=== PATIENT | female | born 1945 | race Caucasian/White ===

== ENCOUNTER 2025-07-11 15:16 | Emergency (ER) | payer MEDICARE, BC, SELFPAY ==
--- OUTSIDE RECORDS SUMMARY | 2008-07-10 03:00 | XMS_ITS | Continuity of Care Document ---
Author Organization [facility] Address [address] [place] [address] [place] [address] Phone Care Team Providers Care Fruit Loader Name Role Phone Fritz Carrington Unavailable Unavailable Procedures Procedure Date Eye Exam Established Pt Advance Directives Directive Yes / No Effective Date File Name No Information Encounters Encounter Description Practice Location Reason(s) For Visit Diagnoses Date Provider Providers Copied on Encounter [facility], [id number] [place] [address] [address], [place], [place], [id number], [place] tel:[phone] [address] [facility] No Information [address] [facility] [address], [place], [address], [place]. tel:[phone] Family History Family Member Type Diagnosis Age At Onset No Information Payers Payer name Insurance type Covered constitution party ID Authoriza tion(s) Medicare [facility] [id number] Social History Type Description Quantity Date Captured Comments Sex Female Smoking Status No Information Chief Complaint And Reason For Visit No Information Reason For Referral Reason For Referral No Information History Of Present Illness Encounter Date Complaint History Of Prese nt Illness No Information Functional Status Date Functional Assessmen t No Information Instructions Date Instruction Additional Infor mation No Information Assessments Type Assessment Date No Information Patient Care Teams Name Effective Dates (start - stop) Status Members No Information
--- NOTE | ~2025-07-11 | CT_ITS ---
CT abdomen pelvis w con Clinical History: ABDOMINAL PAIN . 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 Visualized heart and pericardium: Unremarkable. Liver: Intra and extrahepatic biliary ductal dilatation. Gallbladder: Unremarkable. Spleen: Unremarkable. Pancreas: A few tiny calcifications along head. Adrenal glands: Unremarkable. Kidneys: A few tiny bilateral probable cysts. Right kidney- No hydronephrosis. No renal stones. Left kidney- No hydronephrosis. No renal stones. Distal esophagus/stomach: Unremarkable. Small bowel loops: Normal caliber and wall thickness. Colon: Diverticula. Diffuse sigmoid wall thickening likely chronic diverticular disease. Appendix not seen. Nodes: No enlarged nodes. Peritoneum: No ascites. No free air. Urinary bladder: Unremarkable. Uterus: Removed. Adnexa: No masses. Bones: No acute bony abnormality. Soft tissues: Unremarkable. Aorta: No aneurysm or dissection. Atherosclerotic disease. IVC: Unremarkable. Main portal vein/SMV/splenic vein: Patent. IMPRESSION: 1. No acute findings. Reviewed, dictated and finalized at location R. N MAKER IMPRESSION: 1. No acute findings.
[2025-07-11 15:35] VITALS: BP 175/95; PULSE 79; RESP 18; TEMP 36.7; O2SAT 100
[2025-07-11 17:17] LABS: Add Urine Microscopic? NO; Appearance Urine Clear (Clear); Glucose Urine UA Negative (Negative); Leukocyte Esterase Ur Negative LEU/UL (Negative); Nitrate Urine Negative (Negative); Specific Grav Ur 1.011 (1.001-1.035)
--- NOTE | 2025-07-11 18:25 | ED_ITS ---
HPI - Female Genitourinary General Chief complaint: Urogenital-Female <Nestor Bell MD - Last Filed: 07/11/25 20:08> Stated complaint: vag burning while urinating <Nestor Bell MD - Last Filed: 07/11/25 20:08> Time Seen by Provider: 07/11/25 18:22 <Nestro Bell MD - Last Filed: 07/11/25 20:08> Source: patient and EMS <Nestor Bell MD - Last Filed: 07/11/25 20:08> Mode of arrival: EMS <Nestor Bell MD - Last Filed: 07/11/25 20:08> Limitations: no limitations <Nestor Bell MD - Last Filed: 07/11/25 20:08> History of Present Illness HPI Narrative: 80 YEARS OLD WHITE FEMALE CAME TO THE ED BY AMBULANCE FEELING LIKE HER BODY IS GOING TO . THE VERSUS SHE COMPLAIN OF ABDOMINAL PAIN FOR 2 MONTHS. ASSOCIATED WITH NAUSEA. PATIENT LIVES ALONE, DENIES ANY FEVER OR CHILLS OR VOMITING. SHE REPORTS SOME CONSTIPATION OVER THE LAST FEW DAYS. <Nestor Bell MD - Last Filed: 07/11/25 20:08> Related Data Allergies/Adverse reactions: Allergies Allergy/AdvReac Type Severity Reaction Status Date / Time PHILIP Inhibitors Allergy Unknown Verified 03/18/15 09:07 butorphanol Allergy Unknown Verified 07/12/15 16:06 ciprofloxacin Allergy Unknown Verified 07/12/15 16:06 codeine Allergy Unknown Verified 07/12/15 16:05 nalbuphine Allergy Unknown Verified 03/18/15 09:06 pentazocine Allergy Unknown Verified 03/18/15 09:05 tramadol AdvReac Unknown Unverified 05/17/14 07:53 BUTORPHANOL TARTRATE Allergy Unknown Uncoded 05/17/14 07:53 MAO INHIBITORES Allergy Unknown Uncoded 02/03/14 15:26 NALBUPHINE HCL Allergy Unknown Uncoded 05/17/14 07:53 PENTAZOCINE LACTATE Allergy Unknown Uncoded 05/17/14 07:53 NARCOTIC ANTAGONIST AdvReac Unknown PT IS ON Uncoded 05/23/11 10:25 METHADONE <Nestor Bell MD - Last Filed: 07/11/25 20:08> Review of Systems 2 Review of Systems: All systems reviewed & are unremarkable except as noted in HPI and below <Nestor Bell MD - Last Filed: 07/11/25 20:08> PMFSH Family History Family History: Family History Grandparent Family history of glaucoma Mother Family history of obesity Family history of congestive heart failure Patient's mother is Sibling Depression Patient's brother is in good health Family history of malignant neoplasm of breast in first degree relative Father Family history of alcoholism Patient's father is <Nestor Bell MD - Last Filed: 07/11/25 20:08> Social History Social History: Social History Smoking status: Former smoker Alcohol intake: never <Nestor Bell MD - Last Filed: 07/11/25 20:08> Exam 2 Narrative: GENERAL APPEARANCE: WELL-DEVELOPED, WELL-NOURISHED SKIN: NORMAL COLOR HEAD: NORMOCEPHALIC, NONTRAUMATIC EYES: CLEAR CONJUNCTIVA ENT: OROPHARYNX NORMAL, EARS NORMAL, NOSE NORMAL NECK: SUPPLE, NONTENDER CHEST AND RESPIRATORY: AIRWAY PATENT, NO RESPIRATORY DISTRESS, NO ACCESSORY MUSCLE USE HEART: REGULAR RATE/RHYTHM ABDOMEN: SOFT, RIGHT ABDOMINAL TENDERNESS, HEPATOMEGALY,, NO ORGANOMEGALY, QUIET BOWEL SOUNDS VASCULAR: NORMAL PERIPHERAL PULSES, NORMAL CAPILLARY REFILL. MUSCULOSKELETAL: NORMAL RANGE OF MOTION, NONTENDER BACK NEUROLOGIC: ALERT AND ORIENTED ?3, CRUSHING MILL OPERATOR IS NORMAL TESTED, NO GROSS MOTOR DEFICIT <Nestor Bell MD - Last Filed: 07/11/25 20:08> Course Course Emergency Course: Patient care signed over by previous provider pending CT scan and discharged home. CT scan report reviewed and shows no evidence of an acute process and chronic incidental findings that were previously noted on multiple other scans. Given lack of any acute findings and normal vital signs with unremarkable workup, patient is safe for discharge with regular primary care provider follow-up and return precautions. <Zack Perez MD - Last Filed: 07/12/25 01:06 POLICE RECORDS CLERK> Consultations Consultation #1: PATIENT CARE TURNED OVER TO DR. Cox AT SHIFT CHANGE, AWAITING LABS, IMAGING, DISPOSITION. PATIENT BEEN RESTING QUIETLY IN THE EMERGENCY ROOM WITHOUT ANY ISSUES OR PROBLEMS. <Nestor Bell MD - Last Filed: 07/11/25 20:08> Date: 07/11/25 <Nestor Bell MD - Last Filed: 07/11/25 20:08> Time: 20:05 <Nestor Bell MD - Last Filed: 07/11/25 20:08> Vital Signs Vital signs: Vital Signs Temperature 36.7 C 07/11/25 15:35 Pulse Rate 79 07/11/25 15:35 Respiratory Rate 18 07/11/25 15:35 Blood Pressure 175/95 H 07/11/25 15:35 Pulse Oximetry 100 07/11/25 15:35 Oxygen Delivery Room Air 07/11/25 15:35 Temperature 36.7 C 07/11/25 15:35 Pulse Rate 66 07/12/25 00:28 Respiratory Rate 18 07/12/25 00:28 Blood Pressure 161/88 H 07/12/25 00:28 Pulse Oximetry 98 07/12/25 00:28 Oxygen Delivery Room Air 07/11/25 15:35 <Nestor Bell MD - Last Filed: 07/11/25 20:08> Vital Signs Temperature 36.7 C 07/11/25 15:35 Pulse Rate 79 07/11/25 15:35 Respiratory Rate 18 07/11/25 15:35 Blood Pressure 175/95 H 07/11/25 15:35 Pulse Oximetry 100 07/11/25 15:35 Oxygen Delivery Room Air 07/11/25 15:35 Temperature 36.7 C 07/11/25 15:35 Pulse Rate 66 07/12/25 00:28 Respiratory Rate 18 07/12/25 00:28 Blood Pressure 161/88 H 07/12/25 00:28 Pulse Oximetry 98 07/12/25 00:28 Oxygen Delivery Room Air 07/11/25 15:35 <Zack Perez MD - Last Filed: 07/12/25 01:06 POLICE RECORDS CLERK> MDM - Female Genitourinary MDM Narrative Medical decision making narrative: PATIENT REPORT THAT HER LIVER BEEN HURTING FOR OVER 1 MONTH VITAL SIGNS SHOWING BLOOD PRESSURE 175/95 OTHERWISE WITHIN NORMAL LIMIT PHYSICAL EXAMINATION SHOWING SLIGHT TENDERNESS AT THE RIGHT ABDOMEN, NO GUARDING OR REBOUND, QUITE BOWEL SOUNDS DIFFERENTIAL DIAGNOSIS: ANXIETY, DEPRESSION, HEPATOMEGALY, CHOLECYSTITIS, APPENDICITIS, DIVERTICULITIS, COLITIS, CONSTIPATION, HEPATOMEGALY BLOOD WORKUP TODAY INCLUDES CBC, CMP, LIPASE SHOWED NO SIGNIFICANT ABNORMALITY URINALYSIS SHOWED NO SIGNIFICANT ABNORMALITY CT ABDOMEN AND PELVIS WITH IV CONTRAST SHOWED PATIENT CARE TURNED OVER TO DR. Cox AT SHIFT CHANGE, AWAITING , IMAGING, DISPOSITION. PATIENT BEEN RESTING QUIETLY IN THE EMERGENCY ROOM WITHOUT ANY ISSUES OR PROBLEMS. I BELIEVE PATIENT CAN GO HOME IF THE CT SCAN OF THE ABDOMEN AND PELVIS SHOWED NO SIGNIFICANT ABNORMALITY. <Nesotr Bell MD - Last Filed: 07/11/25 20:08> Differential Diagnosis Differential diagnosis: Likely other ( ABOVE) <Nestor Bell MD - Last Filed: 07/11/25 20:08> Medical Records Attestation: I reviewed the patient's medical records. <Nestor Bell MD - Last Filed: 07/11/25 20:08> Lab Data Attestation: I reviewed the patient's lab results. <Nestor Bell MD - Last Filed: 07/11/25 20:08> Result diagrams: 07/11/25 19:11 07/11/25 19:11 <Nestor Bell MD - Last Filed: 07/11/25 20:08> Labs: Lab Results 07/11/25 07/11/25 Range/Units 16:35 19:11 WBC 6.0 (4.5-10.0) K/mm3 RBC 4.46 (4.2-5.4) M/mm3 Hgb 12.1 (12.0-15.0) g/dL Hct 37.2 (37.0-47.0) % MCV 83.4 (80-100) fl MCH 27.1 (26-34) pg MCHC 32.5 (32-36) g/dl RDW 14.9 H (11.5-14.5) % Plt Count 258 (150-375) k/mm3 MPV 10.4 (7.4-10.4) fl Immature Gran % (Auto) 0.2 (0-0.5) % Neut % (Auto) 55.6 (45.5-73.1) % Lymph % (Auto) 28.0 (18.3-44.2) % [place] % (Auto) 11.8 H (2.6-8.5) % Eos % (Auto) 3.6 (0-4.4) % Baso % (Auto) 0.8 (0.2-1.2) % Lymph # (Auto) 1.69 (0.9-3.2) K/mm3 [place] # (Auto) 0.7 H (0.1-0.6) K/mm3 Eos # (Auto) 0.2 (0-0.3) K/mm3 Baso # (Auto) 0.1 (0.0-0.1) K/mm3 Abs Immat Gran (auto) 0.01 (0.00-0.031) K/mm3 Absolute Neuts (auto) 3.4 (1.3-6.7) K/mm3 Absolute Nucleated RBC 0.000 (0.0-0.012) K/mm3 Nucleated RBC % 0.0 (0.0-0.2) % Sodium 138 (137-145) mmol/L Potassium 4.1 (3.4-5.0) mmol/L Chloride 102 (98-107) mmol/L Carbon Dioxide 30 (22-30) mmol/L Anion Gap 6 (4-12) mmol/L BUN 20 H (7-17) mg/dL Creatinine 0.89 (0.7-1.0) mg/dL Estim Creat Clear Calc 47 ml/min Estimated GFR > 60 (59 - ) Glucose 87 (65-110) mg/dL Lactic Acid 0.8 (0.7-2.0) mmol/L Calcium 9.4 (8.4-10.2) mg/dL Total Bilirubin 0.6 (0.2-1.3) mg/dL AST 31 (14-36) U/L ALT 15 (6-35) U/L Alkaline Phosphatase 92 (38-126) U/L Total Protein 7.6 (6.3-8.2) g/dL Albumin 4.3 (3.5-5.1) g/dL Lipase 257 (23-300) U/L Urine Color Yellow (Yellow) Urine Appearance Clear (Clear) Urine pH 5.5 (5.0-9.0) Ur Specific [place] 1.011 (1.001-1.035) Urine Protein Negative (Negative) mg/dL Urine Glucose (UA) Negative (Negative) mg/dL Urine Ketones Negative (Negative) mg/dL Ur Blood (Man) Negative (Negative) Urine Nitrate Negative (Negative) Urine Bilirubin Negative (Negative) Urine Urobilinogen 0.2 (<2.0) mg/dL Leukocyte Esterase Rfl Negative (Negative) ANISHA/UL <Nestor Bell MD - Last Filed: 07/11/25 20:08> Lab Results 07/11/25 07/11/25 Range/Units 16:35 19:11 WBC 6.0 (4.5-10.0) K/mm3 RBC 4.46 (4.2-5.4) M/mm3 Hgb 12.1 (12.0-15.0) g/dL Hct 37.2 (37.0-47.0) % MCV 83.4 (80-100) fl MCH 27.1 (26-34) pg MCHC 32.5 (32-36) g/dl RDW 14.9 H (11.5-14.5) % Plt Count 258 (150-375) k/mm3 MPV 10.4 (7.4-10.4) fl Immature Gran % (Auto) 0.2 (0-0.5) % Neut % (Auto) 55.6 (45.5-73.1) % Lymph % (Auto) 28.0 (18.3-44.2) % [place] % (Auto) 11.8 H (2.6-8.5) % Eos % (Auto) 3.6 (0-4.4) % Baso % (Auto) 0.8 (0.2-1.2) % Lymph # (Auto) 1.69 (0.9-3.2) K/mm3 [place] # (Auto) 0.7 H (0.1-0.6) K/mm3 Eos # (Auto) 0.2 (0-0.3) K/mm3 Baso # (Auto) 0.1 (0.0-0.1) K/mm3 Abs Immat Gran (auto) 0.01 (0.00-0.031) K/mm3 Absolute Neuts (auto) 3.4 (1.3-6.7) K/mm3 Absolute Nucleated RBC 0.000 (0.0-0.012) K/mm3 Nucleated RBC % 0.0 (0.0-0.2) % Sodium 138 (137-145) mmol/L Potassium 4.1 (3.4-5.0) mmol/L Chloride 102 (98-107) mmol/L Carbon Dioxide 30 (22-30) mmol/L Anion Gap 6 (4-12) mmol/L BUN 20 H (7-17) mg/dL Creatinine 0.89 (0.7-1.0) mg/dL Estim Creat Clear Calc 47 ml/min Estimated GFR > 60 (59 - ) Glucose 87 (65-110) mg/dL Lactic Acid 0.8 (0.7-2.0) mmol/L Calcium 9.4 (8.4-10.2) mg/dL Total Bilirubin 0.6 (0.2-1.3) mg/dL AST 31 (14-36) U/L ALT 15 (6-35) U/L Alkaline Phosphatase 92 (38-126) U/L Total Protein 7.6 (6.3-8.2) g/dL Albumin 4.3 (3.5-5.1) g/dL Lipase 257 (23-300) U/L Urine Color Yellow (Yellow) Urine Appearance Clear (Clear) Urine pH 5.5 (5.0-9.0) Ur Specific [place] 1.011 (1.001-1.035) Urine Protein Negative (Negative) mg/dL Urine Glucose (UA) Negative (Negative) mg/dL Urine Ketones Negative (Negative) mg/dL Ur Blood (Man) Negative (Negative) Urine Nitrate Negative (Negative) Urine Bilirubin Negative (Negative) Urine Urobilinogen 0.2 (<2.0) mg/dL Leukocyte Esterase Rfl Negative (Negative) ANISHA/UL <Zack Perez MD - Last Filed: 07/12/25 01:06 POLICE RECORDS CLERK> Critical Care Time Critical Care Time Critical Care Time: No <Nestor Bell MD - Last Filed: 07/11/25 20:08> Discharge Plan Discharge Clinical Impression: Abdominal pain <Nestor Bell MD - Last Filed: 07/11/25 20:08> Patient Disposition: Home <Nestor Bell MD - Last Filed: 07/11/25 20:08> Condition: Stable <Nestor Bell MD - Last Filed: 07/11/25 20:08> Instructions: Antibiotic Form, Abdominal Pain (ED) <Nestor Bell MD - Last Filed: 07/11/25 20:08> Additional Instructions: CT scan shows no acute abnormalities. Laboratory studies are all reassuring and normal. Follow-up with your primary care provider about her symptoms. Return with any emergencies. <Nestor Bell MD - Last Filed: 07/11/25 20:08> Patient Language: Luxembourgish <Nestor Bell MD - Last Filed: 07/11/25 20:08> Follow-up/Referrals: Pramod Kirkland MD [Primary Care Provider, Hospitalist] <Nestor Bell MD - Last Filed: 07/11/25 20:08> Time of Disposition: 23:36 <Nestor Bell MD - Last Filed: 07/11/25 20:08> 23:36 <Zack Perez MD - Last Filed: 07/12/25 01:06 POLICE RECORDS CLERK>
--- OUTSIDE RECORDS SUMMARY | 2025-07-11 19:05 | XMS_ITS | Clinical Summary ---
Author Organization [facility] Address [address] [place] [address] Care Team Providers Care Clinical Mental Health Counselor Name Role Phone Pramod Kirkland MD Primary Care Provider [phone] Source Comments [facility],non-owned Affiliates and Associated Physician Practices is amultiple site organization consisting of ambulatory clinics and hospital sitesin [place], [place], [place] and [place]. This disclosure is being madepursuant to the Care Everywhere program and may not contain all information available regarding this patient. Last updated 18.[facility] Social History Tobacco Use Types Packs/Day Years Used Date Smoking Tobacco: Never Assessed Comments Unknown Sex and Gender Information Value Date Recorded Sex Assigned at Not on file Legal Sex Female 9:59 AM CDT Gender Identity Not on file Sexual Orientation Not on file Plan of Treatment Health Maintenance Due Date Last Done Comments BONE DENSITY TESTING 1945 HEPATITIS C SCREENING 06/04/1965 DTAP/TDAP/TD VACCINES (1 - Tdap) 1966 PNEUMOCOCCAL VACCINE 50+ (1 of 1 - PCV) 1997 ZOSTER VACCINE (1 of 2) 1997 Respiratory Syncytial Virus (RSV) Vaccine Pt: or over 60 yrs (1 - 1-dose 75+ series) 2022 DEPRESSION SCREENING 09/10/2024 COVID-19 VACCINE (1 - 2023-2 5 season) 2025 INFLUENZA VACCINE (#1) 2025 HEPATITIS B VACCINE Aged Out No longe r eligible based on patient's age to complete this topic HIB VACCINE Aged Out No longer eligi ble based on patient's age to complete this topic HPV VACCINE Aged Out No longer eligi ble based on patient's age to complete this topic MENINGOCOCCAL (Group B) VACC INE SHARED DECISION-MAKING Aged Out No longer eligibl e based on patient's age to complete this topic MENINGOCOCCAL GROUPS A/C/Y/W VACCINE Aged Out No longer eligible b ased on patient's age to complete this topic Insurance MEDICAID - [place] Care Teams Clinical Mental Health Counselor Relationship Specialty Start Date End Date Pramod Kirkland MD [address] [facility] [address] [place] [id number] PCP - General 07/29/20
--- OUTSIDE RECORDS SUMMARY | 2025-07-11 19:05 | XMS_ITS | Clinical Summary ---
Author Organization [facility] Address [address] [place] [address] Care Team Providers Care Leveling Machine Operator Name Role Phone Unavailable Primary Care Provider Unavailabl e Social History Tobacco Use Types Packs/Day Years Used Date Smoking Tobacco: Never Assessed Comments Unknown Sex and Gender Information Value Date Recorded Sex Assigned at Not on file Legal Sex Female 7:35 PM CDT Gender Identity Not on file Sexual Orientation Not on file Plan of Treatment Health Maintenance Due Date Last Done Comments Hepatitis C 1965 DTaP, Tdap and Td Vaccines ( 1 - Tdap) 1966 Pneumococcal Vaccine: 50+ Ye ars (1 of 1 - PCV) 1997 Zoster Vaccines (1 of 2) 1997 Dexa Scan (General) 2012 RSV Immunization or 60+ Years (1 - 1-dose 75+ series) 2022 COVID-19 Vaccine ( - 2024-2 6 season) 2025 Influenza Adult (#1) 2025 Hepatitis A Vaccines Aged Out No long er eligible based on patient's age to complete this topic Meningococcal B Vaccine Aged Out No l onger eligible based on patient's age to complete this topic Meningococcal Vaccine Aged Out No kenny cyrus eligible based on patient's age to complete this topic RSV Immunizations Under 20 Months Aged Out No longer eligible based on patient's age to complete this topic
--- OUTSIDE RECORDS SUMMARY | 2025-07-11 19:05 | XMS_ITS | Data Portability ---
Author Organization [facility] Address [address] [place] [address] Care Team Providers Care Crm Developer Name Role Phone BOJORQUEZ, JESSICA Primary Care Provider Unavailabl e Assessment No assessment recorded. Plan of Treatment Reminders Order Date Submit Date Provider Last Modified By Organization Details Last Modified Time Details Appointments None recorded. Lab urinalysis, dipstick 2015 016 In-Office Order, Internal Use Only DO Not Attach Compendium DO Not Attach Compendium, Do Not Delete/merge, [id number] 6 11:48:56 culture, urine 2015 016 [facility], [address], [address], [address], 6 16:17:31 Referral colonoscopy referral 2015 016 [email or web address] Lenard Alonzo DO, [address], [address], 6 11:14:42 Procedures None recorded. Surgeries None recorded. Imaging MAMMO, screening, bilateral 2015 016 [email or web address] Not available 6 11:14:41 Medication Orders mupirocin calcium 2 % topical cream 2015 016 [facility], [address], [place], [id number], 6 11:48:56 triamcinolo ne acetonide 0.025 % topical cream 2015 016 [facility]-, [address], [address], [place], [place], [id number], 6 11:48:56 ketoconazol e 2 % shampoo 2015 016 [facility], [address], [address], [place], [place], [id number], 6 11:48:56 Patient TargetsNo targets recorded. Patient Instructions Encounter Date Encounter Id Patient Instructions Last Modified By Organization Details Last Modified Time 04/28/2016 [id number] mammogram: about this test Not available 04/28/2016 13:03:18 When You Want to Lose Weight: Care Instructions Not available 04/28/2016 13:03:18 painful urinatio n (dysuria): care instructions Not available 04/28/2016 13:03:18 skin lesions: care instructions Not available 04/28/2016 13:03:18 Increase intake of fresh fruits, vegetables, lean protein and whole grains. Avoid packaged foods. Drink at least 8-10 glasses of water per day. Increase activity level to exercise most days of the week, build up to at least 30 minutes. We will send urine for culture and call you with results. Not available 04/28/2016 11:45:50 Sign records release to have labs sent here. 3 month f/u Not available 04/28/2016 11:44:53 Reason for Referral Colonoscopy Referral for Scr eening colonoscopy evaluate and treat Referring Physician: Jessica Bojorquez, Family Medicine, Encounter Date: 04/28/2016 Results Created Date Observation Date Name Description Value Unit Range Abnormal Flag Note LastModifiedBy Organization Detail LastModifiedTime 04/28/20 16 04/28/2016 urina lysis , dipst ick Leukocytes Negati ve Not Available In-Office Order Internal Use Only DO Not Attach Compendium DO Not Attach Compendium, Do Not Delete/merge, [id number] 04/28/2016 10:56:57 04/28/20 16 04/28/2016 urina lysis , dipst ick Nitrite negati ve Not Available In-Office Order Internal Use Only DO Not Attach Compendium DO Not Attach Compendium, Do Not Delete/merge, Counts include 234 beds at the [facility] 04/28/2016 10:56:57 04/28/2004/28/2016 urina lysis , dipst ick Urobilinogen .2 Not Available In-Of fice Order Internal Use Only DO Not Attach Compendium DO Not Attach Compendium, Do Not Delete/merge, Counts include 234 beds at the [facility] 04/28/2016 10:56:57 04/28/20 16 04/28/2016 urina lysis , dipst ick Protein Negati ve Not Available In-Office Order Internal Use Only DO Not Attach Compendium DO Not Attach Compendium, Do Not Delete/merge, Counts include 234 beds at the [facility] 04/28/2016 10:56:57 04/28/2004/28/2016 urina lysis , dipst ick pH 5.5 Not Available In-Office Order Internal Use Only DO Not Attach Compendium DO Not Attach Compendium, Do Not Delete/merge, Counts include 234 beds at the [facility] 04/28/2016 10:56:57 04/28/2004/28/2016 urina lysis , dipst ick Blood Negati ve Not Available In-Office Order Internal Use Only DO Not Attach Compendium DO Not Attach Compendium, Do Not Delete/merge, Counts include 234 beds at the [facility] 04/28/2016 10:56:57 04/28/2004/28/2016 urina lysis , dipst ick Specific [place] 1.015 Not Available In-Off ice Order Internal Use Only DO Not Attach Compendium DO Not Attach Compendium, Do Not Delete/merge, Counts include 234 beds at the [facility] 04/28/2016 10:56:57 04/28/2004/28/2016 urina lysis , dipst ick Ketone Negati ve Not Available In-Office Order Internal Use Only DO Not Attach Compendium DO Not Attach Compendium, Do Not Delete/merge, Counts include 234 beds at the [facility] 04/28/2016 10:56:57 04/28/2004/28/2016 urina lysis , dipst ick Bilirubin Negati ve Not Available In-Office Order Internal Use Only DO Not Attach Compendium DO Not Attach Compendium, Do Not Delete/merge, Counts include 234 beds at the [facility] 04/28/2016 10:56:57 04/28/20 16 04/28/2016 urina lysis , dipst ick Glucose Negati ve Not Available In-Office Order Internal Use Only DO Not Attach Compendium DO Not Attach Compendium, Do Not Delete/merge, [id number] 04/28/2016 10:56:57 04/28/20 16 04/28/2016 urina lysis , dipst ick Appearance Clear Not Available In-Offi ce Order Internal Use Only DO Not Attach Compendium DO Not Attach Compendium, Do Not Delete/merge, [id number] 04/28/2016 10:56:57 04/28/20 16 04/28/2016 urina lysis , dipst ick Color Yellow Not Available In-Office Order Internal Use Only DO Not Attach Compendium DO Not Attach Compendium, Do Not Delete/merge, [id number] 04/28/2016 10:56:57 04/28/20 16 05/01/2016 cultu re, urine urine culture, routine FINAL REPORT abnormal Not Available [facility] ([facility]) [address], [place], [address], 05/01/2016 16:17:31 04/28/20 16 05/01/2016 cultu re, urine result 1 ENTERO COCCUS FAECAL IS abnormal GREAT ER THAN 100,0 00 COLON Y FORMI NG UNITS PER ML NOTE: THIS ISOLA TE IS VANCO MYCIN -SUSC EPTIB LE. THIS INFOR MATIO N IS PROVI DED FOR EPIDE MIOLO GIC PURPO SES ONLY: VANCO MYCIN IS NOT AMONG THE ANTIB IOTIC S RECOM VASU D FOR THERA PY OF URINA RY TRACT INFEC TIONS CAUSE D BY ENTER OCOCC US. FOR ENTER OCOCC US SPECI ES, CEPHA LOSPO RINS, AMINO GLYCO SIDES (EXCE PT FOR HIGH- LEVEL RESIS TANCE SCREE MAK) , CLIND AMYCI N, AND TRIME THOPR IM- SULFA METHO XAZOL E ARE NOT EFFEC TIVE CLINI FRANCIA . FLUOR OQUIN OLONE S ARE USED PRIMA RILY FOR TREAT ING URINA RY TRACT INFEC TIONS . (CLSI , M100- S19, 2009) Not Available [facility] ([facility]) [address], [place], [address], 05/01/2016 16:17:31 04/28/20 16 05/01/2016 cultu re, urine antimicrobia l susceptibili ty COMMEN T S = SUSCE PTIBL E; I = INTER MEDIA TE; R = RESIS TANT P = POSIT ABIMAEL; N = NEGAT ABIMAEL MICS ARE EXPRE SSED IN MICRO GRAMS PER ML ANTIB IOTIC RSLT# 1 RSLT# 2 RSLT# 3 RSLT# 4 CIPRO FLOXA NARDA S LEVOF LOXAC IN S NITRO FURAN TOIN S PENIC ILLIN S TETRA CYCLI NE R VANCO MYCIN S Not Available [facility] ([facility]) [address], [place], [address], 05/01/2016 16:17:31 Result Notes None recorded. Problems Name Problem SNOMED Code Status Onset Date Resolution Date Notes Provider Name and Address Organization Details Recorded Time Dysuria 80463814 Active Jessicajuany Bojorquez STUDENT ACCOUNTS COORDINATOR, PHARMACOEPIDEMIOLOGIST-C Attn: [facility] [facility],[address] [place], [address], [facility] 6 11:48:56 Obesity 512291012 Active Jessicajuany Bojorquez STUDENT ACCOUNTS COORDINATOR, PHARMACOEPIDEMIOLOGIST-C Attn: [address] [facility],[address] [place], [address], [facility] 6 11:48:56 Skin lesion 21909540 Active Jessica Bojorquez STUDENT ACCOUNTS COORDINATOR, PHARMACOEPIDEMIOLOGIST-C Attn: [address] [facility],[address] [place], [address], [facility] 6 11:48:56 Urinary tract infectious disease 82548146 Active Jessica Bojorquez STUDENT ACCOUNTS COORDINATOR, PHARMACOEPIDEMIOLOGIST-C Attn: [facility] [facility],[address] [place], [address], [facility] 6 09:28:39 Problem Notes None recorded. Procedures Surgical History Date Name Laterality Status Provider Name and Address Organization Details Recorded Time Hysterectomy completed Ashly Lovell [facility] 04/28/2016 10:34:51 Imaging Results None recorded. Procedure Notes None recorded. Medical Equipment None Reported. Allergies Allergen ID Allergen Name Allergen Category Reaction Reaction Severity Criticality Documentation Date Start Date Code Code System Note Provider Name and Address Organization Details Recorded Time 05357 codeine medicatio n Not available Not available Not available 04/28/2016 2670 RxNorm thrus h/shonda sea Ashly ahn [facility] 6 10:30:29 11198 Cipro medicatio n Not available Not available Not available 04/28/2016 81796 3 RxNorm Ashly ahn, [facility] 6 10:30:18 Medications Name Sig Start Date Stop Date Status Note LastModified by Organization Details LastModified Time ketoconazole 2 % sham active Not Available Not Available Not Available mupirocin 2 % crea active Not Available Not Available Not Available metronidazole 250 mg tabs active Not Available Not Available Not Available clindamycin hcl 300 mg caps active Not Available Not Available Not Available levothyroxine sodium 100 mcg tabs active Not Available Not Available Not Available triamcinolone acetonide 0.1 % crea active Not Available Not Available Not Available doxepin hcl 50 mg caps Take 1 or 2 po at hs prn active Not Available Not Available No t Available nitrofurantoin monohydrate/ma crocrystals 100 mg caps active Not Available Not Available Not Available delzicol 400 mg cpdr active Not Available Not Available Not Available triamcinolone acetonide 0.025 % lotn active Not Available Not Available Not Available fluconazole 150 mg tabs active Not Available Not Available Not Available triamcinolone acetonide 0.025 % oint active Not Available Not Available Not Available phenazopyridin e hcl 200 mg tabs active Not Available Not Available Not Available sulfamethoxazo le/trimethopri m ds 800-160 mg tabs active Not Available Not Available Not Available triamcinolone acetonide 0.5 % crea active Not Available Not Available Not Available triamcinolone acetonide 0.025 % crea active Not Available Not Available Not Available clonazepam 2 mg tabs Take one tab bid active Not Available Not Available No t Available mupirocin 2 % oint active Not Available Not Available Not Available ketoconazole 2 % shampoo APPLY TO THE AFFECTED AREA(S), LATHER, LEAVE IN PLACE FOR 5 MINUTES, AND THEN RINSE OFF WITH WATER BY TOPICAL ROUTE ONCE DAILY 2015 active Not Available Not Available Not Avai lable fluconazole 150 mg tablet active Not Available Not Availabl e Not Available doxepin 75 mg capsule active Not Available Not Available Not Available clonazepam 1 mg tablet active Not Available Not Available No t Available sulfamethoxazo le 800 mg-trimethopri m 160 mg tablet active Not Available Not Available Not Available triamcinolone acetonide 0.1 % topical cream active Not Available Not Available Not Available risperidone 2 mg tablet active Not Available Not Available No t Available famotidine 20 mg tablet active Not Available Not Available No t Available triamcinolone acetonide 0.025 % topical cream APPLY A THIN LAYER TO THE AFFECTED AREA(S) BY TOPICAL ROUTE 2 TIMES PER DAY 2015 active Not Available Not Available Not Avai lable cephalexin 500 mg capsule active Not Available Not Available N ot Available nitrofurantoin macrocrystal 100 mg capsule Take 1 capsule twice a day by oral route for 5 days. 2015 active Not Available Not Available Not Avai lable divalproex ER 500 mg tablet,extende d release 24 hr active Not Available Not Available Not Available levothyroxine 150 mcg tablet active Not Available Not Availab le Not Available mupirocin calcium 2 % topical cream APPLY A SMALL AMOUNT TO THE AFFECTED AREA BY TOPICAL ROUTE 3 TIMES PER DAY FOR 10 DAYS 2015 active Not Available Not Available Not Avai lable levofloxacin 500 mg tablet active Not Available Not Availabl e Not Available clobetasol 0.05 % scalp solution active Not Available Not Available Not Available Risperdal Consta 25 mg/2 mL intramuscular susp,extended release active Not Available Not Available Not Available methadone 220mg po liquid daily active Not Available Not Available No t Available Vitals Date Recorded Body height Body weight Body mass index (BMI) Respiratory rate Oxygen saturation Oxygen saturation in Arterial blood by Pulse oximetry Heart rate Body temperature Systolic And Diastolic Provider Name and Address Organization Details Last Updated DateTime 6 165.1 cm 74742.5 37080 g 32 kg/m2 20 /min 93 % 93 % 88 /min 98.6 [degF] 102/50 mm[Hg] [facility] 6 10:40:22 Social History Question Answer Notes LastModified by Organization Details LastModified Time Tobacco Smoking Status Former Smoker Ashly Lovell [facility] 04/28/2016 10:45:39 Do You Have An Advance Directive? Yes Information not available 04/28/2016 What Is Your Level Of Caffeine Consumption? Occasional Information not available 04/28/2016 How Much Tobacco Do You Chew? None Information not available 04/28/2016 What Type Of Diet Are You Following? REGULAR Diverticulosis Watches What She Eats Information not available 04/28/2016 Which Illicit Or Recreational Drugs Have You Used? None Information not available 04/28/2016 Education 4 Year College Information not available 04/28/2016 Are There Any Guns Present In Your Home? No Information not available 04/28/2016 Hard Of Hearing Or Deaf In One Or Both Ears? 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 No Information not available 04/28/2016 Seat Belts Used Routinely Yes Information not available 04/28/2016 Smoke Alarm In Home Yes Information not available 04/28/2016 At What Age Did You Start Smoking Tobacco? 22 Information not available 04/28/2016 How Much Tobacco Do You Smoke? No Ecig Information not available 04/28/2016 General Stress Level Medium Information not available 04/28/2016 Do You Use Sunscreen Routinely? Yes Information not available 04/28/2016 Sex: Unknown Functional Status Question Answer Note LastModified by Organizat ion Details LastModified Time What is your level of alcohol consumption? 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 Occasional Information not available 04/28/2016 Mental Status None recorded. Family History Relationship Description Onset Age of this Age Resolved Age Notes LastModified by Organization Details LastModified Time Sister Depressive disorder cmilster Not available 2015 10:51:44 Sister Hypertensive disorder cmilster Not available 2015 10:51:44 Brother Depressive disorder cmilster Not available 2015 10:51:44 Notes:SISTER HAD BREAST CANC ER Medical History Condition Response Anxiety Disorder Y Diabetes Y Muscle, Joint, or Bone Problems Y Acid Reflux (GERD) Y Stroke Y Kidney or Bladder Problems Y GI Problems Y Skin Problems Y Hepatitis Y Headaches Y Gynecological History Statement/Question Response If Post Menopausal, Age at Menopause Age at First Child Obstetrics History GPAL:G 0 P 0 0 0 0 Past Encounters Encounter ID Performer Location Encounter Start Date Encounter Closed Date Diagnosis/Indication Diagnosis SNOMED-CT Code Diagnosis ICD10 Code Diagnosis IMO Codes Diagnosis Note [id number] Jessica Bojorquez APN, FNP-C [facility] [address] [place] [address] 04/28/2016 09:50:16 05/02/2016 11:14:41 Dysuria 05187631 R30.0 Obesity 156010281 E66.9 BMI 32 Screening colonoscopy 44 8980484 Z12.11 Screening mammography 24 470842 Z12.31 Adult heal th examination 858379433 Z00.00 Skin lesion 18940118 L98 .9 Health Concerns Section Related Observation LastModified by Organization Detai ls LastModified Time None Recorded Concern Status LastModified by Organization Details LastModified Time None Recorded Advance Directives Directive Y: Payers Insurance Date Sequence Insurance Name Policy Number Policy Krishna Covered Member ID Krishna Member ID Guarantor Name 10/03/2019 2 [place] WHEN MEDICARE OR MEDICARE REPLACEMENT PRIMARY) Sera Grimes [id number] 10/03/2019 1 [place] Seragwyn Grimes [id number] 10/03/2019 [place] - [facility] Sera Demi Grimes [id number] Notes Date Note Type Note Provider Name and Address Organization Details Recorded Time 04/28/20 16 text/htm l Urinary FrequencyReported by PatientHPIFor severity, patient reportsmoderate. For onset/timing, patient reportsconstant.Chronic uti's since 1992; long hx of bacterial vaginitis; has not seen food supervisor in 2 years Rash/Skin LesionReported by PatientHPIFor location, patient reportsscalp. 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
--- OUTSIDE RECORDS SUMMARY | 2025-07-11 19:05 | XMS_ITS | Clinical Summary ---
Author Organization [facility] Address [address] [place] [address] Phone Care Team Providers Care Batter Mixer Helper Name Role Phone Pramod Kirkland MD Primary Care Provider [phone] Allergies Active Allergy Reactions Criticality Noted Date Comments Ciprofloxacin Other (see Comments) Medium 06/01/2020 Codeine Other (see Comments) Medium 06/01/2020 Reaction: rash, Medications No known medications Social History Tobacco Use Types Packs/Day Years Used Date Smoking Tobacco: Every Day Smokeless Tobacco: Never Alcohol Use Standard Drinks/Week Comments Never 0 (1 standard drink = 0.6 oz pur e alcohol) AUDIT-C Answer Date Recorded Q1: How often do you have a drink containing alc ohol? Never 06/01/2020 Average Number of Drinks Not on file 020 Frequency of Binge Drinking Not on file 05/12 Comments No Sex and Gender Information Value Date Recorded Sex Assigned at Not on file Legal Sex Female 11:04 PM CDT Gender Identity Not on file Sexual Orientation Not on file Last Filed Vital Signs Vital Sign Reading Time Taken Comments Blood Pressure 120/84 06/01/2020 6:21 PM CDT Pulse 91 06/01/2020 6:21 PM CDT Temperature 36.1 C (96.9 F) 06/01/2020 10:41 AM CDT Respiratory Rate 18 06/01/2020 6:21 PM CDT Oxygen Saturation 98% 06/01/2020 6:21 PM CDT Inhaled Oxygen Concentration - - Weight 81.6 kg (180 lb) 06/01/2020 10:43 AM CDT Height 163.8 cm (5' 4.5) 06/01/2020 10:43 AM CD T Body Mass Index 30.42 06/01/2020 10:43 AM CDT Plan of Treatment Health Maintenance Due Date Last Done Comments TdaP Immunization 1945 Pneumococcal Immunization (5 0+ years) (1 of 1 - PCV) 1997 Zoster Immunization (1 of 2) 1997 Medicare Initial AWV [id number] 12/09/2020 Respiratory Syncytial Virus (RSV) Immunization (Adult) (1 - 1-dose 75+ series) 2022 Influenza Immunization (#1) 2025 SARS-COV-2 Immunization (1 - season) 2025 Hepatitis C Virus (HCV) Screening Completed 016 Hepatitis B Immunization Aged Out No longer eligible based on patient's age to complete this topic Human Papillomavirus (HPV) Immunization Aged Out No longer eligible b ased on patient's age to complete this topic Meningococcal Immunization (ACWY) Aged Out No longer eligible based on patient's age to complete this topic Rotavirus Immunization Aged Out No lo nger eligible based on patient's age to complete this topic Procedures Procedure Name Priority Date/Time Associated Diagnosis Comments HEPATITIS PANEL ACUTE (AHP) Routine 03/10/2016 8:41 AM CDT Loss of weight Diarrhea, unspecified type from Last 3 Months or Most Recently Relevant to Health Maintenance Results * (ABNORMAL) HEPATITIS PANEL ACUTE (AHP) (03/10/2016 8:41 AM CDT) HEPATITIS A IGM ANTIBODY NON DETECTED NON DETECTED 03/10/2016 9:37 PM CDT [facility] Comment: IGM Antibodies to HAV not detected. Does not exclude early acute or recovered HAV infection. HEP B CORE AB (IGM) NON DETECTED NON DETECTED 03/10/2016 9:37 PM CDT [facility] Comment: IGM anti-HBC not detected. Does not exclude the possibility of exposure to or infection with HBV. HEPATITIS B SURFACE ANTIGEN NON DETECTED NON DETECTED 03/10/2016 9:37 PM CDT [facility] hepatitis C antibody 9.33(H) <1 S/CO 03/10/2016 9:37 PM CDT [facility] Comment: Signal/Cutoff ratio < 0.79 is Nondetected Signal/Cutoff ratio 0.80-0.99 is Grayzone Signal/Cutoff ratio > 0.99 is Detected Supplemental assays are recommended if signal/cutoff ratio is >/=1.00. Signal/cutoff ratio result >/= 5.00 is 97% predictive of positivity for recombinant immunoblot assay (RIBA) and will be reported to the [place] [facility] as required. Result faxed to the [facility] Blood specimen (specimen) Venipuncture / Unknown 03/10/2016 8:41 AM CDT 03/10/2016 8:41 AM CDT us Saba Lei MD HEMATOLOGY ORDERABLES Final Res ult F [facility] [address] [place] [address], [place] from Last 3 Months or Most Recently Relevant to Health Maintenance Insurance MEDICARE MEDICAID [place] MEDICARE C [employer] on file Care Teams Batter Mixer Helper Relationship Specialty Start Date End Date Pramod Kirkland MD [address] [facility] [address] [place] [address] PCP - General Internal Medicine 12/24/15
--- OUTSIDE RECORDS SUMMARY | 2025-07-11 19:05 | XMS_ITS | Patient Health Record ---
Author Organization [facility] Address [address] [facility] [address] [place] [address] Care Team Providers Care Planting Material Remover Name Role Phone Rehan eD Leon Unavailable [phone] Reason For Referral No Information Plan Of Treatment No Information
[2025-07-11] MEDS: SODIUM CHLORIDE 0.9% IV 1,000 ML 999 ML IV CONT (19:11)
[2025-07-11 19:18] LABS: Hematocrit 37.2 % (37.0-47.0); Hemoglobin 12.1 g/dL (12.0-15.0); Immature Granulocyte Percent A 0.2 % (0-0.5); Lymphocytes Absolute Auto 1.69 K/mm3 (0.9-3.2); Mean Corpuscular HGB Conc 32.5 g/dl (32-36); Mean Corpuscular Hemoglobin 27.1 pg (26-34); Mean Corpuscular Volume 83.4 fl (80-100); Nucleated Red Blood Cells Absolute Auto 0.000 K/mm3 (0.0-0.012); Nucleated Red Blood Cells Perc 0.0 % (0.0-0.2); Platelet Count Result 258 k/mm3 (150-375); Red Blood Count 4.46 M/mm3 (4.2-5.4); White Blood Count 6.0 K/mm3 (4.5-10.0)
[2025-07-11 19:31] LABS: Alanine Aminotransferase 15 U/L (6-35); Albumin Level 4.3 g/dL (3.5-5.1); Alkaline Phosphatase 92 U/L (38-126); Anion Gap 6 mmol/L (4-12); Aspartate Amino Transferase 31 U/L (14-36); Bilirubin,Total 0.6 mg/dL (0.2-1.3); Blood Urea Nitrogen 20 mg/dL (7-17); Calcium 9.4 mg/dL (8.4-10.2); Carbon Dioxide 30 mmol/L (22-30); Chloride 102 mmol/L (98-107); Estimated CRCL calculation 47 ml/min; Estimated Glomerular Filt Rate > 60; Glucose 87 mg/dL (65-110); Lipase 257 U/L (23-300); Potassium 4.1 mmol/L (3.4-5.0); Sodium 138 mmol/L (137-145); Total Protein 7.6 g/dL (6.3-8.2)
[2025-07-11 22:38] VITALS: BP 179/92; PULSE 71; RESP 20; O2SAT 100
--- NOTE | 2025-07-12 00:13 | PC.NURSE ---
This RN went into discharge patient and patient yells No! I am NOT going home, I need to be admitted. I want to if I go home! This RN informed patient that she is up for discharge and that the statements she made are taken seriously. Patient states I don't care! I want to ! I am not going home! I am in agony and I have no way to get home! Patient denies any plan to harm herself at this time. ERP and sample hand notified.
[2025-07-12 00:28] VITALS: BP 161/88; PULSE 66; RESP 18; O2SAT 98
== END 2025-07-12 00:32 | disposition home or self-care (01) ==
PROVIDERS: Emergency Medicine; Emergency Provider Emergency Medicine; PCP Internal Medicine
DX: R10.9 Unspecified abdominal pain (principal); Z87.891 Personal history of nicotine dependence
CPT/HCPCS: 36415; 74177; 80053; 81003; 83605; 83690; 85025; 96360; 99284; J7030; Q9967